=== PATIENT | female | born 1935 | race Caucasian/White ===

== ENCOUNTER 2021-07-03 09:15 | Emergency (ER) | payer OTHER ==
[2021-07-03 09:49] VITALS: TEMP 97.7; BMI 22.1
[2021-07-03 10:31] LABS: BASO % 3.4 % (0-2.0); EOS % 1.2 % (0-4.5); HEMATOCRIT 43.3 % (32.4-45.2); HEMOGLOBIN 14.5 GM/dl (10.7-15.3); LYMPH % 9.1 % (8-40); MCH 30.1 pg (25.7-33.7); MCHC 33.5 g/dl (32.0-36.0); MEAN CELL VOLUME 89.9 fl (80-96); MEAN PLT VOLUME 9.9 fl (7.5-11.1); MONO % 4.6 % (3.8-10.2); NEUT % 81.7 % (42.8-82.8); PLATELET COUNT 241 10^3/uL (134-434); RBC 4.81 M/mm3 (3.60-5.2); WHITE BLOOD COUNT 10.5 K/mm3 (4.0-10.8)
[2021-07-03 10:38] VITALS: PULSE 51
[2021-07-03 10:46] LABS: ALBUMIN 3.6 g/dl (3.4-5.0); BILIRUBIN,TOTAL 0.8 mg/dl (0.2-1); CREATININE 0.7 mg/dl (0.55-1.3); TOT PROT 6.5 g/dl (6.4-8.2)
[2021-07-03 14:57] VITALS: BP 163/82
== END 2021-07-03 11:30 | disposition home or self-care (01) ==
LOC: FER 09:15
DX: I10 Essential (primary) hypertension (principal)
CPT/HCPCS: 36415; 71045-TC-FY; 80053; 82550; 84484; 85025; 93005; 99284-25